=== PATIENT | male | born 1990 | race Caucasian/White ===

== ENCOUNTER 2016-12-13 12:54 | Emergency (ER) | payer OTHER ==
[~2016-12-13] VITALS: Ht 185.4 cm; Wt 109.8 kg
[2016-12-13 13:39] LABS: microscopic required? NO
[2016-12-13 14:02] VITALS: BP 151/86
[2016-12-13 14:22] LABS: urine erythrocyte NEGATIVE (NEGATIVE)
== END 2016-12-13 15:31 | disposition home or self-care (01) ==
LOC: ED 12:54
PROVIDERS: Emergency Medicine
DX: S43.101A Unspecified dislocation of right acromioclavicular joint, initial encounter (principal); F12.129 Cannabis abuse with intoxication, unspecified; F17.210 Nicotine dependence, cigarettes, uncomplicated; W22.01XA Walked into wall, initial encounter; Y93.89 Activity, other specified; Y99.8 Other external cause status; Y92.89 Other specified places as the place of occurrence of the external cause
CPT/HCPCS: Q0092

== ENCOUNTER 2017-04-09 13:07 | Emergency (ER) | payer SELFPAY ==
[~2017-04-09] VITALS: Ht 182.9 cm; Wt 94.3 kg
[2017-04-09 15:07] VITALS: BP 130/78
== END 2017-04-09 15:18 | disposition home or self-care (01) ==
LOC: ED 13:07
DX: F20.5 Residual schizophrenia (principal); M79.1 Myalgia; Z86.59 Personal history of other mental and behavioral disorders
CPT/HCPCS: Q0092

== ENCOUNTER 2019-02-24 12:10 | Emergency (ER) | payer OTHER ==
[~2019-02-24] VITALS: Ht 185.4 cm; Wt 109.3 kg
[2019-02-24 12:28] VITALS: Ht 185.4 cm; Wt 109.3 kg
[2019-02-24 14:12] VITALS: BP 117/79
== END 2019-02-24 14:12 | disposition home or self-care (01) ==
LOC: ED 12:10
DX: S43.101A Unspecified dislocation of right acromioclavicular joint, initial encounter (principal); F20.9 Schizophrenia, unspecified; X58.XXXA Exposure to other specified factors, initial encounter; Y93.89 Activity, other specified; Y92.89 Other specified places as the place of occurrence of the external cause; Y99.8 Other external cause status